=== PATIENT | female | born 1990 | race Caucasian/White ===

== ENCOUNTER 2025-04-02 23:34 | Emergency (ER) | payer SELFPAY | END 2025-04-03 01:04 | disposition home or self-care (01) | LOC: JD.ED 23:34 | DX: S63.284A Dislocation of proximal interphalangeal joint of right ring finger, initial encounter (principal); Z88.0 Allergy status to penicillin; Z88.2 Allergy status to sulfonamides; W01.0XXA Fall on same level from slipping, tripping and stumbling without subsequent striking against object, initial encounter | CPT/HCPCS: 26770; 73140; 99283; J2003 ==